=== PATIENT | female | born 1980 | race Caucasian/White ===

== ENCOUNTER 2019-03-02 11:24 | Day surgery (SDC) | payer OTHER ==
[~2019-03-02] VITALS: Ht 175.3 cm; Wt 92.7 kg
[~2019-03-02 11:24] MED LIST: DOCU240C31 PO; IBUP-1222 PO; NONE PER PT; OXYC-302 PO
[2019-03-02] MEDS ORDERED: LACTATED RINGERS 1,000 ML IV SCH (12:02)
[2019-03-02 12:26] LABS: HCG UR SG 1.002 (1.003-1.030)
[2019-03-02] MEDS ORDERED: ACETAMINOPHEN 500 MG TABLET PO ONE (12:30)
[2019-03-02] MEDS ORDERED: GABAPENTIN 300 MG CAPSULE PO ONE (12:30)
[2019-03-02 12:32] VITALS: BP 132/94
[2019-03-02] MEDS ORDERED: EPINEPHRINE 1 MG/ML, 1ML ONE (13:41)
[2019-03-02] MEDS ORDERED: SILVER NITRATE STICK TP ONE (13:41)
[2019-03-02] MEDS ORDERED: BUPIVACAINE/PF 0.25% ONE (13:41)
[2019-03-02] MEDS ORDERED: MIDAZOLAM 1 MG/ML, 2ML ONE (13:50)
[2019-03-02] MEDS ORDERED: ROCURONIUM 10MG/ML,5ML ONE (13:52)
[2019-03-02] MEDS ORDERED: PROPOFOL 10 MG/ML, 20ML ONE (13:52)
[2019-03-02] MEDS ORDERED: ONDANSETRON 2MG/ML, 2ML ONE (13:52)
[2019-03-02] MEDS ORDERED: DEXAMETHASONE 4 MG/ML, 1ML ONE (13:52)
[2019-03-02] MEDS ORDERED: FENTANYL PF 250 MCG/5ML ONE (13:52)
[2019-03-02] MEDS ORDERED: CEFAZOLIN 1,000 MG ONE (13:52)
[2019-03-02] MEDS ORDERED: NEOSTIGMINE 1 MG/ML, 10ML ONE (13:58)
[2019-03-02] MEDS ORDERED: GLYCOPYRROLATE 0.2MG/1ML, 5ML ONE (13:58)
[2019-03-02] MEDS ORDERED: METHYLENE BLUE 50 MG/10 ML AMP ONE (14:38)
[2019-03-02] MEDS ORDERED: FENTANYL PF 100 MCG/2ML ONE ×2 (14:58→15:42)
[2019-03-02] MEDS ORDERED: HALOPERIDOL 5 MG/ML IV PRN (15:00)
[2019-03-02] MEDS ORDERED: hydrALAzine 20 MG/ML, 1ML IV PRN (15:00)
[2019-03-02] MEDS ORDERED: MEPERIDINE/PF 25MG/0.5ML IVPush PRN (15:00)
[2019-03-02] MEDS ORDERED: ONDANSETRON 2MG/ML, 2ML IV PRN (15:00)
[2019-03-02] MEDS ORDERED: PROMETHAZINE 12.5 MG SUPP PR PRN (15:00)
[2019-03-02] MEDS ORDERED: ONDANSETRON ODT 8 MG PO PRN (15:00)
[2019-03-02] MEDS ORDERED: METOPROLOL 1 MG/ML, 5ML IV PRN (15:00)
[2019-03-02] MEDS ORDERED: MORPHINE SULFATE 4 MG/ML, 1ML IVPush PRN (15:00)
[2019-03-02] MEDS ORDERED: LABETALOL 5MG/ML, 20ML IV PRN (15:00)
[2019-03-02] MEDS ORDERED: ACETAMINOPHEN 325 MG TABLET PO PRN (15:00)
[2019-03-02] MEDS ORDERED: HYDROmorphone 2 MG/ML, 1ML IVPush PRN (15:00)
[2019-03-02] MEDS ORDERED: FENTANYL PF 100 MCG/2ML IV PRN (15:00)
[2019-03-02] MEDS ORDERED: PROMETHAZINE 25 MG/ML, 1ML IV PRN (15:00)
[2019-03-02] MEDS ORDERED: ALBUTEROL SULFATE 2.5 MG/3 ML NPPB PRN (15:00)
[2019-03-02] MEDS ORDERED: MIDAZOLAM 1 MG/ML, 2ML IV PRN (15:00)
[2019-03-02] MEDS ORDERED: DIAZEPAM 5 MG/ML, 2ML IVPush PRN (15:00)
[2019-03-02] MEDS ORDERED: OXYcodone 5 MG/5 ML ORAL.SOL UDC PO PRN (15:00)
[2019-03-02] MEDS ORDERED: OXYcodone 5 MG/5 ML ORAL.SOL UDC ONE (15:42)
== END 2019-03-02 18:00 | disposition home or self-care (01) ==
LOC: OUT 11:24
PROVIDERS: ATTEND Obstetrics & Gynecology
DX: N83.202 Unspecified ovarian cyst, left side (principal); Z87.891 Personal history of nicotine dependence; Z72.89 Other problems related to lifestyle; Z79.899 Other long term (current) drug therapy
CPT/HCPCS: 58350; 58662; 81025; 88112; 88305; J0171; J0690; J1100; J2250; J2405; J2704; J2710; J3010; J3490; J7120; Q9968